=== PATIENT | female | born 1995 | race Caucasian/White ===

== ENCOUNTER 2017-02-07 16:32 | Inpatient (IN) | payer OTHER ==
[2017-02-07] MEDS ORDERED: ceFAZolin 2 GM PREMIX 50 ML ONE (16:43)
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
[2017-02-07 17:18] LABS: I-STAT POTASSIUM 4.6 MMOL/L (3.5-4.9)
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
[2017-02-07] MEDS ORDERED: IOHEXOL 350 MG/ML 10 ML VIAL (for RAD DIAG) IV ONE (17:37)
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
[2017-02-07 17:58] LABS: AUTOMATED NEUTROPHIL # 13.2 TH/MM3 (1.8-7.7); BASOPHIL % 0.2 % (0.0-2.0); EOSINOPHIL # 0.1 TH/MM3 (0-0.4); EOSINOPHIL % 0.9 % (0.0-4.0); HEMO FLAGS DIFF FINAL; LYMPH % 10.8 % (9.0-44.0); LYMPHOCYTE # 1.7 TH/MM3 (1.0-4.8); MEAN CORPUSCULAR HEMOGLOBIN 28.9 PG (27.0-34.0); MEAN CORPUSCULAR HGB CONC 32.8 % (32.0-36.0); MONO % 6.3 % (0.0-8.0); NEUT % 81.8 % (16.0-70.0); PLATELET COUNT 210 TH/MM3 (150-450); RED BLOOD COUNT 3.52 MIL/MM3 (4.00-5.30); RED CELL DISTRIBUTION WIDTH 13.5 % (11.6-17.2); WHITE BLOOD COUNT 16.1 TH/MM3 (4.0-11.0)
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
--- NOTE | 2017-02-07 18:02 | RADRPT ---
EXAM DATE/TIME: 02/07/2017 17:11 The sagittal and coronal reconstructions demonstrate that the lumbar vertebral bodies are intact. The disc spaces are well preserved. The mild compression fracture deformities at the T11 and T12 level a re again visualized. The axial images demonstrate that the lumbar vertebral bodies and posterior elements are intact. The visualized portion of the sacrum are intact as well. The sacroiliac joints are congruent. There is a minimal scoliosis. There is no paraspinal soft tissue abnormality. CONCLUSION: 1. The lumbar spine is intact with no acute fracture malalignment. 2. The known fractures of the T11 and T12 vertebral bodies are again visualized. Please see thoracic spine CT for further details. Ronald Palma MD on February 07, 2017 at 17:59 Board Certified Radiologist. This report was verified electronically.
[2017-02-07] MEDS ORDERED: KETOROLAC TROMETHAMINE 30 MG/ML (IVP) VIAL IVP PRN (18:15)
[2017-02-07] MEDS ORDERED: CHLORHEXIDINE GLUCONATE 2 % 1 PACK (2 CLOTHS) TOP PRN (18:15)
[2017-02-07] MEDS ORDERED: MAGNESIUM HYDROXIDE SUSP 30 ML CUP PO PRN (18:15)
[2017-02-07] MEDS ORDERED: LACTATED RINGER'S 1000 ML INJ 1,000 ML IV ONE (18:15)
[2017-02-07] MEDS ORDERED: MISCELLANEOUS NURSING INFORMATION XX SCH (18:15)
[2017-02-07] MEDS ORDERED: SODIUM CHLORIDE 0.9% FLUSH 10 ML FLUSH IV FLUSH PRN (18:15)
[2017-02-07 18:20] LABS: APTT (PATIENT) 23.3 SEC (24.3-30.1); INTERNATIONAL NORMALIZED RATIO 1.1 RATIO
[2017-02-07 18:22] VITALS: BP 117/76; PULSE 104; RESP 18; O2SAT 99
[2017-02-07 18:27] VITALS: O2SAT 99
[2017-02-07] MEDS: ONDANSETRON HCL 4 MG/2 ML VIAL IV PRN (18:35)
[2017-02-07 19:32] VITALS: O2SAT 100
[2017-02-07 22:30] VITALS: BP 107/66; PULSE 94; RESP 17; TEMP 97.8; O2SAT 100
[2017-02-07] MEDS: ENOXAPARIN SODIUM 30 MG/0.3 ML SYRINGE SQ SCH (22:44)
[2017-02-07] MEDS: DOCUSATE SODIUM 100 MG CAP PO SCH (22:44)
[2017-02-07] MEDS: BACITRACIN TOP OINT 15 GM TUBE TOP SCH (23:38)
[2017-02-08 00:35] VITALS: BP 91/52; PULSE 88; RESP 16; TEMP 97.1; O2SAT 98
[2017-02-08] MEDS: CHLORHEXIDINE GLUCONATE 2 % 1 PACK (2 CLOTHS) TOP SCH ×2 (04:02→23:02)
[2017-02-08 04:35] VITALS: BP 92/54; PULSE 96; RESP 17; TEMP 98.5; O2SAT 96
[2017-02-08 07:47] LABS: AUTOMATED NEUTROPHIL # 7.4 TH/MM3 (1.8-7.7); BASOPHIL % 0.2 % (0.0-2.0); EOSINOPHIL # 0.2 TH/MM3 (0-0.4); EOSINOPHIL % 1.8 % (0.0-4.0); HEMO FLAGS DIFF FINAL; LYMPH % 20.8 % (9.0-44.0); LYMPHOCYTE # 2.3 TH/MM3 (1.0-4.8); MEAN CELL VOLUME 88.1 FL (80.0-100.0); MEAN CORPUSCULAR HEMOGLOBIN 28.9 PG (27.0-34.0); MEAN CORPUSCULAR HGB CONC 32.8 % (32.0-36.0); MONO % 9.3 % (0.0-8.0); NEUT % 67.9 % (16.0-70.0); PLATELET COUNT 188 TH/MM3 (150-450); RED BLOOD COUNT 3.52 MIL/MM3 (4.00-5.30); RED CELL DISTRIBUTION WIDTH 13.3 % (11.6-17.2); WHITE BLOOD COUNT 10.8 TH/MM3 (4.0-11.0)
[2017-02-08 08:00] VITALS: BP 100/64; PULSE 94; RESP 18; TEMP 97.6; O2SAT 100
[2017-02-08 08:10] LABS: BICARBONATE 25.6 MEQ/L (21.0-32.0); POTASSIUM 3.7 MEQ/L (3.5-5.1)
[2017-02-08] MEDS: ACETAMINOPHEN 1000 MG/100 ML VIAL IV SCH ×3 (08:39→23:47)
[2017-02-08] MEDS: DOCUSATE SODIUM 100 MG CAP PO SCH ×2 (08:49→21:30)
[2017-02-08] MEDS: ENOXAPARIN SODIUM 30 MG/0.3 ML SYRINGE SQ SCH ×2 (08:49→21:29)
[2017-02-08] MEDS: BACITRACIN TOP OINT 15 GM TUBE TOP SCH ×2 (08:50→21:30)
[2017-02-08 12:00] VITALS: BP 104/59; PULSE 81; RESP 18; TEMP 97.3; O2SAT 99
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
[2017-02-08] MEDS: METHOCARBAMOL 500 MG TAB PO SCH ×2 (13:38→21:30)
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
[2017-02-08 16:00] VITALS: BP 112/57; PULSE 91; RESP 18; TEMP 97.4; O2SAT 99
[2017-02-08 20:10] VITALS: BP 101/55; PULSE 93; RESP 18; TEMP 98.7; O2SAT 100
[2017-02-09 00:10] VITALS: BP 113/60; PULSE 92; RESP 18; TEMP 98.3; O2SAT 99
[2017-02-09] MEDS: METHOCARBAMOL 500 MG TAB PO SCH (05:14)
[2017-02-09] MEDS: ONDANSETRON HCL 4 MG/2 ML VIAL IV PRN (05:18)
[2017-02-09 08:00] VITALS: BP 111/71; PULSE 88; RESP 16; TEMP 98.1; O2SAT 99
[2017-02-09] MEDS: DOCUSATE SODIUM 100 MG CAP PO SCH (09:03)
[2017-02-09] MEDS: ENOXAPARIN SODIUM 30 MG/0.3 ML SYRINGE SQ SCH (09:03)
[2017-02-09] MEDS: BACITRACIN TOP OINT 15 GM TUBE TOP SCH (09:04)
[2017-02-09] MEDS: ACETAMINOPHEN 1000 MG/100 ML VIAL IV SCH (09:06)
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
[2017-02-09] MEDS ORDERED: MAGN400S PO (09:59)
[2017-02-09] MEDS ORDERED: DOCU1CAP39 PO (09:59)
--- NOTE | 2017-02-09 09:59 | HHI.FF ---
Face to Face Verification Diagnosis: (1) Traumatic compression fracture of T10 thoracic vertebra (2) T12 compression fracture (3) Traumatic compression fracture of T11 thoracic vertebra Physical Therapy Order: Evaluate and Treat, Improve ambulation, Strength and gait training Home Health Nursing Order: Medical education Signs/symptoms of disease process Medication education-adverse effect Nursing assessment with vital signs I have seen patient Colette Juarez on 02/09/17. My clinical findings support the need for the requested home health care services because: Ltd mobility - disease progression Deconditioned w/ increased weakness Limited ability to care for self High risk of falls I certify that my clinical findings support that this patient is homebound because: Post-op weakness Unsteady gait/balance Unsafe to leave home unassisted Unable to use public transportation Divya Junior Feb 09, 2017 09:59
[2017-02-09 12:00] VITALS: BP 108/64; PULSE 101; RESP 16; TEMP 97.8; O2SAT 98
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
[2017-02-09] MEDS ORDERED: OXYC-392 PO (12:46)
[2017-02-09] MEDS ORDERED: METH500T3 PO (12:46)
== END 2017-02-09 16:07 | disposition home or self-care (01) | DRG 552 ==
LOC: NEPI 16:32 → EDBD 18:44 → NEDA 18:44 → N06A 22:17
PROVIDERS: ADMIT Surgery; ATTEND Surgery
PROC: 0HQKXZZ Repair Right Lower Leg Skin, External Approach (ICD-10-PCS; principal; 2017-02-07)
DX: S22.079A Unspecified fracture of T9-T10 vertebra, initial encounter for closed fracture (principal); S22.089A Unspecified fracture of T11-T12 vertebra, initial encounter for closed fracture; S81.011A Laceration without foreign body, right knee, initial encounter; S51.011A Laceration without foreign body of right elbow, initial encounter; V48.6XXA Car passenger injured in noncollision transport accident in traffic accident, initial encounter; Y92.410 Unspecified street and highway as the place of occurrence of the external cause
CPT/HCPCS: 70450; 71010; 71260; 72125; 72128; 72131; 72170; 73560; 74177; 80048; 82435; 82565; 82947; 84132; 84295; 84520; 85025; 85610; 85730; 86850; 86900; 86901; 94150; J0131; J0690; J1650; J1885; J2405; J7120; L0200; L0484; Q9967